=== PATIENT | female | born 1990 | race African-American/Black ===

== ENCOUNTER 2022-03-24 21:18 | Emergency (ER) | payer OTHER, SELFPAY ==
[2022-03-24 21:21] VITALS: BP 128/88; PULSE 73; RESP 18; TEMP 36.4; O2SAT 100
--- NOTE | 2022-03-24 21:48 | ED_ITS ---
HPI - Skin/Abscess/Foreign Bdy General Chief complaint: Skin/Abscess/Foreign Body Stated complaint: i done broke out Time Seen by Provider: 03/24/22 21:27 History of Present Illness HPI narrative: 31-year-old female presents to the emergency room for evaluation of a rash has been present for 5 days. States the rash started on her left bicep, describes it as pruritic. It then spread to her abdomen, neck and back. Patient states she has been putting Vaseline and alcohol which only whitlock the rash. Patient endorses using new body wash. 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 Denies fevers. Lives at home with multiple people and nobody else has any symptoms. Related Data Allergies Allergy/AdvReac Type Severity Reaction Status Date / Time No Known Allergies Allergy Verified 03/24/22 21:31 Review of Systems Review of Systems: CONSTITUTIONAL: Denies fever, chills, or sweats. EYES: Denies visual changes, redness, or discharge. ENT: Denies rhinorrhea, congestion, sore throat, or otalgia. CARDIOVASCULAR: Denies chest pain, palpitations, or edema. RESPIRATORY: Denies cough or dyspnea. GASTROINTESTINAL: Denies abdominal pain, nausea, vomiting, or diarrhea. GENITOURINARY: Denies dysuria or hematuria. SKIN: Reports rash MUSCULOSKELETAL: Denies back pain, joint pain, or myalgia. NEUROLOGIC: Denies headache, numbness, dizziness, or weakness. PSYCHIATRIC: Denies anxiety or depression. Exam Narrative: GENERAL: Well-appearing, well-nourished, no physical limitations, and in no acute distress. HEAD: Normocephalic, atraumatic. EYES: Conjunctivae normal, PERRLA and EOMI. NECK: Supple. No adenopathy or masses. CHEST: Clear to auscultation. No respiratory distress. No wheezes rales or rhonchi. HEART: Regular rate and rhythm. No murmur heard. Normal peripheral pulses. EXTREMITIES: Normal range of motion. No edema. No clubbing or cyanosis SKIN: Scattered, erythematous, macular papular lesions noted to bilateral arms, anterior chest and posterior torso and right lateral neck. No purulent drain age, no signs of lymphangitic spread NEURO: No focal deficits. Alert and oriented x3. MAEW. CN's II-XI intact bilaterally, normal gait PSYCH: Cooperative. Normal mood and affect. Course Vital Signs Vital signs: Vital Signs Temperature 36.4 C 03/24/22 21: Pulse Rate 73 03/24/22 21:21 Respiratory Rate 18 03/24/22 21:21 Blood Pressure 128/88 03/24/22 21:21 Pulse Oximetry 100 03/24/22 21:21 Oxygen Delivery Room Air 03/24/22 21:21 Temperature 36.4 C 03/24/22 21: Pulse Rate 73 03/24/22 21:21 Respiratory Rate 18 03/24/22 21:21 Blood Pressure 128/88 03/24/22 21:21 Pulse Oximetry 100 03/24/22 21:21 Oxygen Delivery Room Air 03/24/22 21:21 Discharge Plan Discharge Clinical Impression: Rash Patient Disposition: Home, Self-Care Condition: Stable Instructions: Antibiotic Form, Dermatitis (ED) Additional Instructions: Take Benadryl at night for the itching. May take Zyrtec during the day. Prescriptions: New prednisone 20 mg tablet 60 mg PO DAILY 5 Days Qty: 15 0RF Follow-up/Referrals: PHYSICIAN,INTEGRATION ASSISTANT [Primary Care Provider] - Time of Disposition: 21:47
== END 2022-03-24 22:15 | disposition home or self-care (01) ==
LOC: ANHED 22:00
PROVIDERS: Emergency Provider Nurse Practitioner Family
DX: R21 Rash and other nonspecific skin eruption (principal)
CPT/HCPCS: 96372; 99283; J1100

== ENCOUNTER 2022-06-19 04:38 | Emergency (ER) | payer OTHER, SELFPAY ==
[2022-06-19 04:42] VITALS: BP 131/63; PULSE 98; RESP 18; TEMP 37; O2SAT 100
--- NOTE | 2022-06-19 05:43 | ED.GENADULT ---
HPI - General Adult General Chief complaint: Unspecified Stated complaint: bodyaches Time Seen by Provider: 06/19/22 05:30 History of Present Illness HPI narrative: This is a 31-year-old female with remote history of pyelonephritis, who presents to the emergency department complaining of aching, 5/10, abdominal pain and dysuria for the past day. She states the pain began yesterday morning and has been constant. It initially also involves the legs but that improved after soaking in Epsom salts. Related Data Allergies Allergy/AdvReac Type Severity Reaction Status Date / Time No Known Allergies Allergy Verified 06/19/22 04:54 Review of Systems Review of Systems: CONSTITUTIONAL: Denies fever, chills, or sweats. EYES: Denies visual changes, redness, or discharge. ENT: Denies rhinorrhea, congestion, sore throat, or otalgia. CARDIOVASCULAR: Denies chest pain, palpitations, or edema. RESPIRATORY: Denies cough or dyspnea. GASTROINTESTINAL: Cramping abdominal pain denies nausea, vomiting, or diarrhea. GENITOURINARY: Dysuria denies hematuria. Last menstrual period 1 week ago SKIN: Denies rash or itching. MUSCULOSKELETAL: Denies back pain, joint pain, or myalgia. NEUROLOGIC: Denies headache, numbness, dizziness, or weakness. PSYCHIATRIC: Denies anxiety or depression. [facility] Social History Social History (Updated 06/19/22 @ 05:44 by Aaron Garcia MD) Smoking status: Never smoker Alcohol intake: never Substance use: current Substance use type: marijuana Exam Narrative: GENERAL: Well-developed, well-nourished, in no acute distress HEAD: Normocephalic, atraumatic. EYES: PERRLA and EOMI. ENT: Nares clear, no rhinorrhea or epistaxis. Mucous membranes moist. Oropharynx without tonsillar hypertrophy exudate or other lesions. CHEST: Clear to auscultation. No respiratory distress. No wheezes rales or rhonchi HEART: Regular rate and rhythm. No murmur heard. Normal peripheral pulses. ABDOMEN: Soft, mild diffuse tenderness palpation, nondistended, normal active bowel sounds. Right-sided CVA tenderness to palpation, no left CVA tenderness to palpation EXTREMITIES: Normal range of motion. No edema. SKIN: Warm, dry, no rash. NEURO: No focal deficits. Alert and oriented x3. PSYCH: Normal mood and affect. Course Course Emergency Course: 07:15 - UA consistent with UTI. White blood cell count elevated to 15.7. Chemistries unremarkable with creatinine of 0.6. I suspect pyelonephritis. The patient is able to tolerate oral fluids. Will discharge with oral antibiotics and recommendations for close primary care follow-up. Discussed return emergent precautions including signs/symptoms of intractable vomiting and acute abdomen. The patient voiced understanding and is comfortable with the plan. All questions answered to her satisfaction Vital Signs Vital signs: Vital Signs Temperature 98.6 F 06/19/22 04:42 Pulse Rate 98 06/19/22 04:42 Respiratory Rate 18 06/19/22 04:42 Blood Pressure 131/63 06/19/22 04:42 Pulse Oximetry 100 06/19/22 04:42 Oxygen Delivery Room Air 06/19/22 04:42 Temperature 98.2 F 06/19/22 06:50 Pulse Rate 90 06/19/22 07:28 Respiratory Rate 12 06/19/22 07:28 Blood Pressure 108/62 06/19/22 07:28 Pulse Oximetry 98 06/19/22 07:28 Oxygen Delivery Room Air 06/19/22 04:42 Medical Decision Making MDM Narrative Medical decision making narrative: Plan: Labs, pain control, test, reassess Differential Diagnosis Differential Diagnosis: UTI, gastroenteritis, pyelonephritis, , metabolic abnormality, other Vital Signs Vital Signs: Vital Signs Temperature 98.6 F 06/19/22 04:42 Pulse Rate 98 06/19/22 04:42 Respiratory Rate 18 06/19/22 04:42 Blood Pressure 131/63 06/19/22 04:42 Pulse Oximetry 100 06/19/22 04:42 Oxygen Delivery Room Air 06/19/22 04:42 Temperature 98.2 F 06/19/22 06:50 Pulse Rate 90 06/19/22 07:28 Respi
[2022-06-19 06:13] LABS: Hematocrit 34.5 % (37.0-47.0); Hemoglobin 10.6 g/dL (12.0-15.0); Mean Corpuscular HGB Conc 30.7 g/dl (32-36); Mean Corpuscular Hemoglobin 22.6 pg (26-34); Mean Corpuscular Volume 73.6 fl (80-100); Platelet Count Result 223 k/mm3 (150-375); Red Blood Count 4.69 M/mm3 (4.2-5.4); Red Cell Distribution Width 20.1 % (11.5-14.5); White Blood Count 15.7 K/mm3 (4.5-10.0)
[2022-06-19 06:21] LABS: Alanine Aminotransferase 33 U/L (6-35); Albumin Level 4.7 g/dL (3.5-5.1); Alkaline Phosphatase 131 U/L (38-126); Anion Gap 7 mmol/L (8-16); Aspartate Amino Transferase 43 U/L (14-36); Bilirubin,Total 0.9 mg/dL (0.2-1.3); Blood Urea Nitrogen 11 mg/dL (7-17); Calcium 9.4 mg/dL (8.4-10.2); Carbon Dioxide 26 mmol/L (22-30); Chloride 105 mmol/L (98-107); Estimated CRCL calculation 114 ml/min; Estimated Glomerular Filt Rate > 60; Glucose 110 mg/dL (65-110); Potassium 3.6 mmol/L (3.4-5.0); Sodium 138 mmol/L (137-145)
[2022-06-19 06:31] LABS: Appearance Urine Turbid (Clear); Bacteria Urine 4+ /hpf; Bilirubin Urine Negative (Negative); Blood Urine 2+ (Negative); Color Urine Dark Yellow (Yellow); Glucose Urine UA Negative (Negative); Ketones Urine 2+ mg/dL (Negative); Leukocyte Esterase Ur 3+ LEU/UL (Negative); Nitrate Urine Positive (Negative); Non Pathogenic Casts 0-2; Protein Urine 2+ mg/dL (Negative); Specific Grav Ur 1.017 (1.001-1.035); Squamous Epithelial Cell Urine Few /hpf (Few); WBC Urine >100 /hpf
[2022-06-19 06:50] VITALS: BP 95/50; PULSE 94; RESP 15; TEMP 36.8; O2SAT 98
[2022-06-19 06:53] LABS: Band Neutrophils Percent 14 % (0-6); Lymphocytes Absolute Manual 1.09 K/mm3 (1.1-4.5); Lymphocytes Percent Manual 7 % (18-44); Metamyelocytes Percent 5 %; Monocytes Absolute Manual 0.31 K/mm3 (0.1-0.90); Monocytes Percent Manual 2 % (3-9); Neutrophils Percent Manual 72 % (46-73); Platelet Estimate Adequate (Adequate); Total Cells Counted 100
[2022-06-19 06:54] LABS: Anisocytosis 1+ (NORMAL); Microcytosis 1+ (NORMAL); Ovalocytes 1+ (NORMAL); Schistocytes 1+ (NORMAL)
[2022-06-19 06:59] LABS: Add Urine Microscopic? YES
[2022-06-19 07:02] LABS: Influenza A QL RT-PCR Negative (Negative); Influenza B QL RT-PCR Negative (Negative); SARS-CoV-2 RNA PCR Negative
[2022-06-19 07:28] VITALS: BP 108/62; PULSE 90; RESP 12; O2SAT 98
== END 2022-06-19 07:59 | disposition home or self-care (01) ==
PROVIDERS: Emergency Provider Preventive Medicine Aerospace Medicine
DX: N12 Tubulo-interstitial nephritis, not specified as acute or chronic (principal); Z20.822 Contact with and (suspected) exposure to COVID-19
CPT/HCPCS: 36415; 80053; 81001; 81025; 85025; 87077; 87086; 87088; 87186; 87636; 96365; 99284; J0131

== ENCOUNTER 2022-08-29 16:32 | Emergency (ER) | payer OTHER, SELFPAY ==
--- NOTE | ~2022-08-29 | XR_ITS ---
EXAMINATION: XR wrist RT min 3V DATE: 08/29/2022 17:35 INDICATION: Nontraumatic right wrist pain TECHNIQUE: Posteroanterior, ulnar deviation, oblique, and lateral views of the right wrist were obtai meliton. COMPARISON: none FINDINGS: Alignment is normal. No fracture. Joint spaces are normal. Soft tissues are unremarkable. Metallic ri ngs obscure portions of the mid diaphyses of the second and fourth proximal phalanges. IMPRESSION: 1. No osseous abnormality. Reviewed, dictated and finalized at location A. IMPRESSION: 1. No osseous abnormality.
[2022-08-29 16:56] VITALS: BP 117/67; PULSE 83; RESP 16; TEMP 36.6; O2SAT 100
--- NOTE | 2022-08-29 17:22 | ED.GENADULT ---
HPI - General Adult General Chief complaint: Extremity Injury, Upper Stated complaint: right wrist injury Time Seen by Provider: 08/29/22 17:15 Source: patient Mode of arrival: ambulatory Limitations: no limitations History of Present Illness HPI narrative: This is a 31-year-old female who presents to the ED with chief complaint of a right wrist pain onset this morning. Patient states that her wrist was painful medially and laterally after she woke up this morning. She states she tried to go swimming today and had increasing pain. She is unsure if maybe she slept on it wrong. She denies any trauma or other injury to the wrist. Denies numbness or weakness. Denies any wounds or bruising. Related Data Allergies Allergy/AdvReac Type Severity Reaction Status Date / Time No Known Allergies Allergy Verified 06/19/22 04:54 Review of Systems Review of Systems: CONSTITUTIONAL: Denies fever, chills, or sweats. SKIN: Denies rash or itching. MUSCULOSKELETAL: See HPI NEUROLOGIC: Denies headache, numbness, dizziness, or weakness. PSYCHIATRIC: Denies anxiety or depression. [facility] Social History Social History (Updated 06/19/22 @ 05:44 by Aaron Garcia MD) Smoking status: Never smoker Alcohol intake: never Substance use: current Substance use type: marijuana Exam Narrative: GENERAL: Well-appearing, well-nourished, and in no acute distress. MSK: Right wrist: Moderate tenderness to the ulnar aspect of the right wrist. Mild tenderness to the radial aspect. No significant bruising swelling or deformity. No overt skin changes. Neurovascular intact distally. Left wrist: Benign. Musculoskeletal exam is otherwise benign. she is ambulatory. No edema. SKIN: Warm, dry, no rash. NEURO: Alert and oriented x3. No focal deficits. PSYCH: Normal mood and affect. Course Vital Signs Vital signs: Vital Signs Temperature 97.9 F 08/29/22 16:56 Pulse Rate 83 08/29/22 16:56 Respiratory Rate 16 08/29/22 16:56 Blood Pressure 117/67 08/29/22 16:56 Pulse Oximetry 100 08/29/22 16:56 Oxygen Delivery Room Air 08/29/22 16:56 Temperature 97.9 F 08/29/22 16:56 Pulse Rate 83 08/29/22 16:56 Respiratory Rate 16 08/29/22 16:56 Blood Pressure 117/67 08/29/22 16:56 Pulse Oximetry 100 08/29/22 16:56 Oxygen Delivery Room Air 08/29/22 16:56 Medical Decision Making [facility] Narrative Medical decision making narrative: This is a 31-year-old female presents to the ED with chief complaint of right wrist pain onset today. No trauma or injury. Her vitals are stable. Exam shows tenderness throughout the wrist but worse at the ulnar aspect. No deformity or bruising. X-rays show no acute osseous findings. Symptoms consistent with wrist sprain versus strain. Instructed to get an [id number] wrist brace for this. supportive measures discussed. Return precautions given. She is stable for discharge. Patient is understanding and agreeable with the plan for discharge and follow-up with her PCP. Vital Signs Vital Signs: Vital Signs Temperature 97.9 F 08/29/22 16:56 Pulse Rate 83 08/29/22 16:56 Respiratory Rate 16 08/29/22 16:56 Blood Pressure 117/67 08/29/22 16:56 Pulse Oximetry 100 08/29/22 16:56 Oxygen Delivery Room Air 08/29/22 16:56 Temperature 97.9 F 08/29/22 16:56 Pulse Rate 83 08/29/22 16:56 Respiratory Rate 16 08/29/22 16:56 Blood Pressure 117/67 08/29/22 16:56 Pulse Oximetry 100 08/29/22 16:56 Oxygen Delivery Room Air 08/29/22 16:56 Discharge Plan Discharge Prescriptions: No Action prednisone 20 mg tablet 60 mg PO DAILY 5 Days Qty: 15 0RF sulfamethoxazole-trimethoprim [Bactrim DS] 800-160 mg tablet 1 tablet PO Q12H Qty: 28 0RF ondansetron 4 mg tablet,disintegrating 4 mg PO Q8H PRN (Reason: nausea and vomiting) Qty: 10 0RF Follow-up/Referrals: PHYSICIAN,ACID BATH MIXER [Primary Care Provider] -
== END 2022-08-29 18:37 | disposition home or self-care (01) ==
LOC: ANHED 18:16
PROVIDERS: Emergency Provider Physician Assistant; PCP Pediatrics
DX: M25.531 Pain in right wrist (principal)
CPT/HCPCS: 73110; 99283

== ENCOUNTER 2023-01-01 13:45 | Emergency (ER) | payer OTHER, SELFPAY ==
[2023-01-01] VITALS (7 sets, daily range): BP systolic 119–130; BP diastolic 73–76; PULSE 55–79; RESP 13–29; TEMP 36.3; O2SAT 100
--- NOTE | ~2023-01-01 | US_ITS ---
CORRECTED REPORT exam description [facility] 01/06/23 This report was recreated on 01/06/23. Original report was EXAMINATION: US OB <= 14 weeks fetus w TV, US OB <= 14 wk fetus add gest INDICATION: abdominal pain, positive . TECHNIQUE: Sonography of the pelvis was performed by transabdominal and transvaginal techniques. COMPARISON: None. RESULT: Uterus: 10.0 x 5.0 x 5.9 cm. Long and closed cervix measuring 4.8 cm. Anteverted. Homogenous myometrium. Intrauterine gestational sac: Multiple present. Baby A, fundal left: Mean Sac Diameter: 1.16 cm, corresponding gestational age 6 week 0 days. Yolk sac present, 3.6 mm. Embryo: [place] rump length: 0.30 cm, corresponding gestational age 5 weeks, 6 days. Gestational heart rate: No heartbeat detected with M mode, but possible flicker of movement in the cine clips. Baby B, fundal right: Mean Sac Diameter: 0.82 cm, corresponding gestational age 5 week 4 days. Yolk sac present, 3.2 mm. Embryo: [place] rump length: 0.21 cm, corresponding gestational age 5 weeks, 5 days. Gestational heart rate: No heartbeat detected with M mode, but possible flicker of movement in the cine clips. Subgestational hematoma: Present adjacent to baby A, measuring 1.3 x 0.4 x 1.2 cm . Right ovary: 2.5 x 2.3 cm. 2.5 x 1.9 x 2.0. No adnexal mass. Left ovary: 2.7 x 2.3 x 2.6 cm. Vascular flow is present. Involuting corpus luteal cyst. Pelvis free fluid: None. IMPRESSION: Twin intrauterine gestations. heart beat not definitely detected by M-mode assessment, but possible cardiac motion visible in cine clips, not surprising at this early gestational age. Recommend close clinical and sonographic follow-up. Estimated Gestational Age: Baby A: 5 weeks, 6 days by crown rump length. [place] by ultrasound 08/28/2023. Baby B: 5 weeks, 5 days by crown-rump length. [facility] by ultrasound 08/29/2023. Small subchorionic hemorrhage adjacent to baby A, measuring up to 1.3 cm Reviewed, dictated and finalized at location K. MTDD IMPRESSION: Twin intrauterine gestations. heart beat not definitely detected by M-mod e assessment, but possible cardiac motion visible in cine clips, not surprising at this early gestational age. Recommend close clinical and sonographic follow -up. Estimated Gestational Age: Baby A: 5 weeks, 6 days by crown rump length. [facility] by ultrasound 08/28/2023. Baby B: 5 weeks, 5 days by crown-rump length. [facility] by ultrasound 08/29/2023. Small subchorionic hemorrhage adjacent to baby A, measuring up to 1.3 cm
--- NOTE | ~2023-01-01 | US_ITS ---
EXAMINATION: US abdomen limited DATE: 01/01/2023 20:12 INDICATION: RLQ pain, evaluate appendix TECHNIQUE: Multiple grayscale and Doppler ultrasound images of the right lower quadrant were obtained . COMPARISON: None available. FINDINGS: The right lower quadrant, including McBurney's point, was sonographically interrogated usin g the curved probe and graded compression. Appendix not visualized. No solid or cystic mass detected. IMPRESSION: Appendix not visualized. No sonographic abnormality detected in the right lower quadrant. Reviewed, dictated and finalized at location K.
[2023-01-01 14:20] LABS: Basophils Absolute Auto 0.1 K/mm3 (0.0-0.1); Basophils Percent Auto 0.4 % (0.2-1.2); Hematocrit 30.6 % (37.0-47.0); Hemoglobin 10.1 g/dL (12.0-15.0); Immature Granulocyte Absolute 0.11 K/mm3 (0.00-0.031); Immature Granulocyte Percent A 0.9 % (0-0.5); Lymphocytes Absolute Auto 1.58 K/mm3 (0.9-3.2); Lymphocytes Percent Auto 13.1 % (18.3-44.2); Mean Corpuscular Hemoglobin 25.4 pg (26-34); Mean Corpuscular Volume 76.9 fl (80-100); Mean Platelet Volume 10.9 fl (7.4-10.4); Monocytes Absolute Auto 0.3 K/mm3 (0.1-0.6); Monocytes Percent Auto 2.7 % (2.6-8.5); Neutrophils Percent Auto 82.9 % (45.5-73.1); Platelet Count Result 265 k/mm3 (150-375); Red Blood Count 3.98 M/mm3 (4.2-5.4); Red Cell Distribution Width 17.9 % (11.5-14.5)
[2023-01-01 14:30] LABS: Alanine Aminotransferase 15 U/L (6-35); Albumin Level 4.8 g/dL (3.5-5.1); Alkaline Phosphatase 64 U/L (38-126); Anion Gap 13 mmol/L (8-16); Aspartate Amino Transferase 21 U/L (14-36); Bilirubin,Total 0.7 mg/dL (0.2-1.3); Blood Urea Nitrogen 17 mg/dL (7-17); Calcium 9.8 mg/dL (8.4-10.2); Carbon Dioxide 18 mmol/L (22-30); Chloride 106 mmol/L (98-107); Estimated CRCL calculation 113 ml/min; Estimated Glomerular Filt Rate > 60; Glucose 127 mg/dL (65-110); Lipase 28 U/L (23-300); Potassium 3.2 mmol/L (3.4-5.0); Sodium 137 mmol/L (137-145)
[2023-01-01] MEDS: ONDANSETRON INJ 4 MG/2 ML VIAL IV PUSH (16:35)
[2023-01-01 16:38] LABS: Appearance Urine Clear (Clear); Bacteria Urine None Seen /hpf; Bilirubin Urine Negative (Negative); Blood Urine Negative (Negative); Color Urine Yellow (Yellow); Glucose Urine UA Negative (Negative); Ketones Urine 4+ mg/dL (Negative); Leukocyte Esterase Ur Trace LEU/UL (Negative); Nitrate Urine Negative (Negative); Protein Urine 2+ mg/dL (Negative); RBC Urine 0-2 /hpf (0-2); Specific Grav Ur 1.033 (1.001-1.035); Squamous Epithelial Cell Urine Few /hpf (Few); WBC Urine 0-5 /hpf; pH Urine 8.5 (5.0-9.0)
[2023-01-01 16:43] LABS: Add Urine Microscopic? YES
--- NOTE | 2023-01-01 16:55 | ED.NAVMDI ---
HPI - Nausea/Vomiting/Diarrhea General Chief complaint: Nausea/Vomiting/Diarrhea Stated complaint: n/v/d abd pain Time Seen by Provider: 01/01/23 16:38 History of Present Illness HPI Narrative: Patient is a 32-year-old female, here with abdominal pain, nausea, vomiting, diarrhea x1 day. Patient states that this morning around 7:00 a.m. she began having significant abdominal pain, describes it is diffuse and more on the right than the left side. She notes that she has had multiple episodes of emesis at home, nonbloody, nonbilious. She additionally had a bowel movement prior to arrival, soft, no blood. Her last menstrual period was at the beginning of November, was unsure that she was today. Did have a positive bedside on arrival to our emergency department. She denies any vaginal bleeding or discharge. She denies fever chills. No known sick contacts. All of her pregnancies she notes she never had pain similar to this, all deliveries word uncomplicated vaginal deliveries. She did receive fentanyl and Zofran EN route, had some improvement of her pain and nausea. No urinary symptoms. Related Data Allergies Allergy/AdvReac Type Severity Reaction Status Date / Time No Known Allergies Allergy Verified 06/19/22 04:54 Review of Systems Review of Systems: All systems reviewed & are unremarkable except as noted in HPI and below PMFSH Social History Social History (Updated 06/19/22 @ 05:44 by Aaron Garcia MD) Smoking status: Never smoker Alcohol intake: never Substance use: current Substance use type: marijuana Exam Narrative: GENERAL: Well-appearing, well-nourished, and in no acute distress. HEAD: Normocephalic, atraumatic. EYES: PERRLA and EOMI. ENT: Nares clear. Mucous membranes moist. NECK: Supple. CHEST: Clear to auscultation. No respiratory distress. HEART: Regular rate and rhythm. Normal peripheral pulses. ABDOMEN: Soft, diffusely tender, no palpable fundus, no rebound or guarding, nondistended. EXTREMITIES: Normal range of motion. No edema. SKIN: Warm, dry, no rash. NEURO: No focal deficits. Alert and oriented x3. PSYCH: Normal mood and affect. Course Course Emergency Course: Chart review performed. Patient is here for N/V/D and abdominal pain x1 day. She was brought in by EMS. Triage vitals grossly normal. A couple prior ED visits for rash, pyelonephritis and wrist sprain. Triage lab work shows WBC of 12, normal renal function, UA negative for UTI. Bedside test positive. Patient seen evaluated, appears to be in significant pain. Concern for possible ectopic versus intra-abdominal infection. Patient should be 1st trimester, given significant pain we will do a dose of morphine, Zofran already given. Will additionally do ultrasound, lab work, IV fluids. HCG quantitative and type and screen has been ordered. Patient re-evaluated. Continues to be in pain. Pain seems to be localized to the right lower quadrant. I did update her that her ultrasound showed twin intrauterine gestation approximately 5 weeks. Her given location of continued pain and white blood cell count of 12 will do ultrasound to evaluate appendix an attempt to avoid additional radiation. Will discuss with Radiology if we have the opportunity for urgent MRI in woman. Extensive conversation had with patient regarding workup given continued right lower quadrant pain. Will do formal ultrasound. I discussed that it may be difficult to visualize the appendix on ultrasound and then the options would likely be possible admission for MRI versus CT scan however this would expose the fetus is to radiation. She is agreeable to attempting ultrasound and then further discussion. Appendix not visualized on ultrasound. I went and discussed this with the patient and she is feeling much better at this time. I did discuss her options including attempt for admission for MRI and repeat abd
[2023-01-01] MEDS: MORPHINE SULFATE (*CRX) 4 MG/ML INJ IV PUSH ×2 (17:16→18:52)
[2023-01-01] MEDS: METOCLOPRAMIDE HCL INJ 10 MG/2 ML VIAL IV PUSH (18:52)
[2023-01-01] MEDS: diphenhydrAMINE HCl INJ 50 MG/ML VIAL 25 MG IV PUSH (18:52)
== END 2023-01-01 21:19 | disposition home or self-care (01) ==
PROVIDERS: Preventive Medicine Aerospace Medicine; Emergency Provider Student in an Organized Health Care Education/Training Program; PCP Pediatrics
DX: O21.9 Vomiting of pregnancy, unspecified (principal); O26.891 Other specified pregnancy related conditions, first trimester; R10.31 Right lower quadrant pain; O30.001 Twin pregnancy, unspecified number of placenta and unspecified number of amniotic sacs, first trimester; Z3A.01 Less than 8 weeks gestation of pregnancy
CPT/HCPCS: 36415; 76705; 76801; 76802; 76817; 80053; 81001; 81025; 83690; 84702; 85025; 86850; 86900; 86901; 96374; 96375; 96376; 99284; J1200; J2270; J2405; J2765